=== PATIENT | male | born 1945 | race Caucasian/White ===

== ENCOUNTER 2021-03-12 08:15 | Emergency (ER) | payer OTHER ==
[2021-03-12] MEDS ORDERED: Sodium Chloride 0.9% 10 ML Syringe FLUSH PRN (08:31)
[2021-03-12] MEDS ORDERED: Nitroglycerin 0.4 MG Tab.SL SL ONE (08:40)
[2021-03-12] MEDS ORDERED: Aspirin 81 MG Tab.Chew PO ONE (08:43)
--- NOTE | 2021-03-12 08:49 | EDM.PDOC ---
ED HPI GENERAL MEDICAL PROBLEM - General Chief Complaint: Chest Pain Stated Complaint: CHEST PAIN Time Seen by Provider: 03/12/21 08:44 Source of Information: Reports: Patient History Limitations: Reports: No Limitations - History of Present Illness INITIAL COMMENTS - FREE TEXT/NARRATIVE: Patient is a unfortunate 75-year-old male who presents emerged from today with complaint of chest pain that started approximately 8:00 this morning. The patient reports he took 2 baby aspirin at home he has had 5 stents in the past and had bypass done in [place] September of this year by Dr. Mon. Patient reports he was in his normal state of health approximate a.m. when he started developing a substernal chest pressure this concerned the patient when it did not alleviate so he presented to emergency department for further evaluation. EKG upon arrival shows inferior NC with reciprocal changes in V1 and V2 the patient has had no cough no congestion no fever no chills Left Chest Pain Score (Numeric/FACES): 4 - Related Data Allergies Allergy/AdvReac Type Severity Reaction Status Date / Time No Known Allergies Allergy Verified 03/12/21 08:28 Home Meds: Home Meds . [Unable to Verify Home Med List] 03/12/21 [History] Past Medical History HEENT History: Reports: None Cardiovascular History: Reports: Bypass, Hypertension, NC, Stents Respiratory History: Reports: None Genitourinary History: Reports: None Musculoskeletal History: Reports: None Neurological History: Reports: None Psychiatric History: Reports: None Endocrine/Metabolic History: Reports: None Hematologic History: Reports: None Immunologic History: Reports: None Oncologic (Cancer) History: Reports: None Dermatologic History: Reports: None - Infectious Disease History Infectious Disease History: Reports: None - Past Surgical History Head Surgeries/Procedures: Reports: None GI Surgical History: Reports: Hernia, Abdominal Social & Family History - Family History Family Medical History: Unobtainable - Tobacco Use Tobacco Use Status *Q: Never Tobacco User - Caffeine Use Caffeine Use: Reports: None - Recreational Drug Use Recreational Drug Use: No ED ROS GENERAL - Review of Systems Review Of Systems: See Below Constitutional: Denies: Fever, Chills Cardiovascular: Reports: Chest Pain. Denies: Blood Pressure Problem, Edema, Lightheadedness ED EXAM, GENERAL - Physical Exam Exam: See Below Exam Limited By: No Limitations General Appearance: Alert, WD/WN, Mild Distress Nose: Normal Inspection, Normal Mucosa, No Blood Throat/Mouth: Normal Inspection, Normal Lips, Normal Teeth, Normal Gums, Normal Oropharynx, Normal Voice, No Airway Compromise Head: Atraumatic, Normocephalic Neck: Normal Inspection, Supple, Non-Tender, Full Range of Motion Respiratory/Chest: No Respiratory Distress, Lungs Clear, Normal Breath Sounds, No Accessory Muscle Use, Chest Non-Tender, Other (Healed midline surgical incision) Cardiovascular: Normal Peripheral Pulses, Regular Rate, Rhythm, No Edema, No Gallop, No JVD, No Murmur, No Rub GI/Abdominal: Normal Bowel Sounds, Soft, Non-Tender, No Organomegaly, No Distention, No Abnormal Bruit, No Mass Back Exam: Normal Inspection, Full Range of Motion, NT Extremities: Normal Inspection, Normal Range of Motion, Non-Tender, Normal Capillary Refill, No Pedal Edema Neurological: Alert, Oriented, CN II-XII Intact, Normal Cognition, Normal Gait, Normal Reflexes, No Motor/Sensory Deficits Skin Exam: Warm, Dry, No Rash #1 Interpretation EKG Date: 03/12/21 Time: 08:50 Rhythm: NSR P-Wave: Present (STEMI) ST-T: Other (ST elevation in leads II, 3, aVF, with reciprocal changes in V1 and V2) QT: Normal #2 Interpretation EKG Date: 03/12/21 Time: 09:00 Rhythm: NSR [place]: Normal P-Wave: Present ST-T: Other (Extension of ST elevation in 2 3 aVF, with reciprocal changes in V1 and V2) #3 Interpretation EKG Date: 03/12/21 Time: 09:17 Rhythm: NSR P-Wave: Present QRS: Normal ST-T: Other (post TNK no change in ST elevation or reciprocal changes) #4 Interpretation EKG Date: 03/12/21 Time: 09:34 Rhythm: NSR P-Wave: Present QRS: Normal ST-T: Other (Patient has dramatic improvement in ST elevations in leads II, III, aVF and and reciprocal changes in V1 and V2 not resolved) #5 Interpretation EKG Date: 03/12/21 Time: 09:54 Rhythm: NSR P-Wave: Present QRS: Normal ST-T: Other (Resolution of ST elevation and reciprocal changes, nonspecific changes) Course - Vital Signs Text/Narrative:: CXR interpreted by me, NAD Case with Dr. Serrato at [facility] in [place], at 8:50 AM, we were on the phone for approximately 10 minutes awaiting a second EKG, second EKG shows extension of STEMI she recommends indication for heparin bolus, heparin drip, Plavix 300 mg p.o. and to give TNKase, or ambulance transfer was secured, she accepts patient in transfer at this time Patient had a blood pressure dropped to 80 systolic post 1 nitroglycerin, chest pain has resolved, fluid bolus given post fluid bolus blood pressure 102 sy stolic Patient has had near resolution of ST changes on his EKG at 951, the patient will be transferred to [facility] in [place] he is not actively having any chest pain at this time Last Recorded V/S: Last Vital Signs Temp 97.1 F 03/12/21 08:28 Pulse 66 03/12/21 08:28 Resp 18 03/12/21 08:28 BP 147/61 H 03/12/21 08:45 Pulse Ox 97 03/12/21 08:28 - Orders/Labs/Meds Orders: Active Orders 24 hr Category Date Time Status EKG 12 Lead [EKG Documentation Completion] [RC] STAT Care 03/12/21 09:23 Active EKG Documentation Completion [RC] STAT Care 03/12/21 08:31 Active EKG Documentation Completion [RC] STAT Care 03/12/21 09:23 Active Peripheral IV Care [RC] . DIRECTED Care 03/12/21 08:33 Active Heparin Sodium/0.45% NaCl [Heparin 25,000 Units in 1/2 Med 03/12/21 08:59 Active NS 500 ML] 25,000 units in 500 ml IV ONETIME Sodium Chloride 0.9% [Normal Saline] 1,000 ml Med 03/12/21 09:14 Active IV .BOLUS Sodium Chloride 0.9% [Saline Flush] Med 03/12/21 08:31 Active 10 ml FLUSH ASDIRECTED PRN Peripheral IV Insertion Adult [OM.PC] Routine Oth 03/12/21 08:31 Ordered Medication Orders Heparin Sodium/Sodium Chloride (Heparin 25,000 Units In 1/2 Ns 500 Ml) 25,000 units in 500 mls @ 0.24 mls/hr IV ONETIME ONE; Protocol Stop: 06/07/21 04:18 Last Admin: 03/12/21 09:10 Dose: 12 units/hr, 0.24 mls/hr Documented by: STEFANI Cosigned by: FIONA Sodium Chloride (Normal Saline) 1,000 mls @ 999 mls/hr IV .BOLUS ONE Stop: 03/12/21 10:14 Last Admin: 03/12/21 09:10 Dose: 999 mls/hr Documented by: STEFANI Sodium Chloride (Sodium Chloride 0.9% 10 Ml Syringe) 10 ml FLUSH ASDIRECTED PRN PRN Reason: Keep Vein Open Last Admin: 03/12/21 08:45 Dose: 10 ml Documented by: STEFANI Labs: Laboratory Tests 03/12/21 03/12/21 Range/Units 08:40 08:40 WBC 5.2 (5.0-10.0) 10^3/uL RBC 4.69 (4.6-6.2) 10^6/uL Hgb 14.5 (14.0-18.0) g/dL Hct 42.3 (40.0-54.0) % MCV 90.2 (80-100) fL MCH 30.9 (27.0-34.0) pg MCHC 34.3 (33.0-35.0) g/dL Plt Count 144 L (150-450) 10^3/uL Neut % (Auto) 47.2 (42.2-75.2) % Lymph % (Auto) 40.1 (20.5-50.1) % [place] % (Auto) 9.2 H (2-8) % Eos % (Auto) 3.1 H (1.0-3.0) % Baso % (Auto) 0.4 (0.0-1.0) % Sodium 137 (136-145) mmol/L Potassium 3.6 (3.5-5.1) mmol/L Chloride 101 (98-107) mmol/L Carbon Dioxide 30 (21-32) mmol/L Anion Gap 9.6 (7-13) mEq/L BUN 18 (7-18) mg/dL Creatinine 1.09 (0.70-1.30) mg/dL Est Cr Clr Drug Dosing 54.91 mL/min Estimated GFR (MDRD) > 60 BUN/Creatinine Ratio 16.5 (No establ ref range) Glucose 138 H (70-99) mg/dL Calcium 8.6 (8.5-10.1) mg/dL Total Bilirubin 1.0 (0.2-1.0) mg/dL AST 19 (15-37) U/L ALT 31 (16-63) U/L Alkaline Phosphatase 47 (46-116) U/L Troponin I High Sens 22 (<=76) pg/mL Total Protein 6.6 (6.4-8.2) g/dL Albumin 3.4 (3.4-5.0) g/dL Globulin 3.2 Albumin/Globulin Ratio 1.1 Meds: Medications Generic Name Dose Route Start Last Admin Trade Name Freq PRN Reason Stop Dose Admin Heparin Sodium/Sodium Chloride 25,000 units in 500 mls @ 0.24 mls/hr 03/12/21 08:59 03/12/21 09:10 Heparin 25,000 Units In 1/2 Ns 500 Ml IV 06/07/21 04:18 12 units/hr ONETIME ONE 0.24 mls/hr Administration Protocol 12 UNITS/HR Sodium Chloride 1,000 mls @ 999 mls/hr 03/12/21 09:14 03/12/21 09:10 Normal Saline IV 03/12/21 10:14 999 mls/hr .BOLUS ONE Administration Sodium Chloride 10 ml 03/12/21 08:31 03/12/21 08:45 Sodium Chloride 0.9% 10 Ml Syringe FLUSH 10 ml ASDIRECTED PRN Administration Keep Vein Open Discontinued Medications Generic Name Dose Route Start Last Admin Trade Name Frenikunj PRN Reason Stop Dose Admin Aspirin 162 mg 03/12/21 08:43 03/12/21 08:47 Aspirin 81 Mg Tab.Chew PO 03/12/21 08:44 162 mg ONETIME ONE Administration Clopidogrel Bisulfate 300 mg 03/12/21 08:55 03/12/21 09:11 Clopidogrel 75 Mg Tab PO 03/12/21 08:56 300 mg ONETIME ONE Administration Heparin Sodium (Porcine) 4,000 units 03/12/21 08:55 03/12/21 09:05 Heparin Sodium 5,000 Units/Ml Vial IVPUSH 03/12/21 08:56 4,000 units .BOLUS ONE Administration Nitroglycerin 0.4 mg 03/12/21 08:40 03/12/21 08:45 Nitroglycerin 0.4 Mg Tab.Sl SL 07/03/21 08:41 0.4 mg ONETIME ONE Administration Tenecteplase 45 mg 03/12/21 09:04 03/12/21 09:11 Tenecteplase 50 Mg Kit IV 03/12/21 09:05 45 mg ONETIME ONE Administration Protocol Tenecteplase Confirm 03/12/21 09:08 03/12/21 09:11 Tenecteplase 50 Mg Kit Administered 03/12/21 09:09 Not Given Dose 50 mg .ROUTE .STK-MED ONE Departure - Departure Time of Disposition: 10:07 Disposition: DC/Tfer to Acute Hospital 02 Reason for Transfer *Q: Primary PCI Indicated Clinical Impression: ST elevation (STEMI) myocardial infarction Qualifiers: Involved coronary artery: unspecified coronary artery Qualified Code(s): I21.3 - ST elevation (STEMI) myocardial infarction of unspecified site Referrals: PCP,None [Primary Care Provider] - Forms: ED Department Discharge Sepsis Event Note (ED) - Evaluation Sepsis Screening Result: No Definite Risk - Focused Exam Vital Signs: Vital Signs Temp Pulse Resp BP BP Pulse Ox 03/12/21 08:45 147/61 H 03/12/21 08:28 97.1 F 66 18 146/62 H 97 - My Orders Last 24 Hours: My Active Orders 03/12/21 08:31 EKG Documentation Completion [RC] STAT Sodium Chloride 0.9% [Saline Flush] 10 ml FLUSH ASDIRECTED PRN Peripheral IV Insertion Adult [OM.PC] Routine 03/12/21 08:33 Peripheral IV Care [RC] . DIRECTED 03/12/21 08:59 Heparin Sodium/0.45% NaCl [Heparin 25,000 Units in 1/2 NS 500 ML] 25,000 units in 500 ml IV ONETIME 03/12/21 09:14 Sodium Chloride 0.9% [Normal Saline] 1,000 ml IV .BOLUS 03/12/21 09:23 EKG 12 Lead [EKG Documentation Completion] [RC] STAT EKG Documentation Completion [RC] STAT - Assessment/Plan Last 24 Hours: My Active Orders 03/12/21 08:31 EKG Documentation Completion [RC] STAT Sodium Chloride 0.9% [Saline Flush] 10 ml FLUSH ASDIRECTED PRN Peripheral IV Insertion Adult [OM.PC] Routine 03/12/21 08:33 Peripheral IV Care [RC] . DIRECTED 03/12/21 08:59 Heparin Sodium/0.45% NaCl [Heparin 25,000 Units in 1/2 NS 500 ML] 25,000 units in 500 ml IV ONETIME 03/12/21 09:14 Sodium Chloride 0.9% [Normal Saline] 1,000 ml IV .BOLUS 03/12/21 09:23 EKG 12 Lead [EKG Documentation Completion] [RC] STAT EKG Documentation Completion [RC] STAT
[2021-03-12] MEDS ORDERED: Heparin Sodium 5,000 Units/ML Vial IVPUSH ONE (08:55)
[2021-03-12] MEDS ORDERED: Clopidogrel 75 MG Tab PO ONE (08:55)
[2021-03-12] MEDS ORDERED: Tenecteplase 50 MG Kit IV ONE (09:04)
[2021-03-12 09:06] LABS: ANION GAP 9.6 mEq/L (7-13); CHLORIDE,CL 101 mmol/L (98-107); SODIUM,NA 137 mmol/L (136-145)
[2021-03-12] MEDS ORDERED: Tenecteplase 50 MG Kit ONE (09:08)
[2021-03-12] MEDS: Heparin Sodium/0.45% NaCl 25,000 UNITS/500 ML BAG IV ONE ×2 (09:10→10:22)
--- NOTE | 2021-03-12 09:12 | CR ---
PROCEDURE INFORMATION: Exam: XR Chest Exam date and time: 03/12/2021 8:42 AM Age: 75 years old Clinical indication: Chest wall pain; Prior surgery; Additional info: Chest pain TECHNIQUE: Imaging protocol: XR of the chest. Views: 1 view. COMPARISON: No relevant prior studies available. FINDINGS: Lungs: Unremarkable. No consolidation. Pleural spaces: Unremarkable. No pleural effusion. No pneumothorax. Heart/Mediastinum: Unremarkable. No cardiomegaly. Bones/joints: Median sternotomy wires are present. Degenerative changes involve the spine. IMPRESSION: No evidence for acute pulmonary disease.
[2021-03-12] MEDS ORDERED: Sodium Chloride 0.9% 1,000 ML IV ONE (09:14)
[2021-03-12] MEDS ORDERED: Heparin Sodium/0.45% NaCl 25,000 UNITS/500 ML BAG IV ONE (10:18)
== END 2021-03-12 10:16 ==
LOC: DL.ED 08:15
DX: I21.3 ST elevation (STEMI) myocardial infarction of unspecified site (principal); I10 Essential (primary) hypertension
CPT/HCPCS: 36415; 71045; 80053; 84484; 85025; 93005; 96365; 96375; 99285; A9270; J1644; J3101; J7030